=== PATIENT | female | born 1975 ===

== ENCOUNTER 2017-06-02 08:59 | Emergency (ER) | payer SELFPAY ==
[2017-06-02 09:10] VITALS: BMI 28.7
[2017-06-02 09:13] VITALS: RESP 16
[2017-06-02 10:16] LABS: RBC URINE 17 /hpf (0-3); URINE BACTERIA OCC (<OCC); URINE BILIRUBIN NEGATIVE (NEGATIVE); URINE BLOOD 2+ (NEGATIVE); URINE COLOR Yellow (YELLOW); URINE GLUCOSE (UA) NORMAL (Normal); URINE KETONE NEGATIVE (NEGATIVE); URINE LEUKOCYTE ESTERASE 3+ Leu/uL (Negative); URINE PROTEIN 2+ mg/dL (NEGATIVE); URINE UROBILINOGEN NORMAL mg/dL (0.2-1.0); WBC URINE 151 /hpf (0-5)
--- NOTE | 2017-06-02 10:23 | C.PDOC ---
Time Seen by Provider: 06/02/17 09:58 Chief Complaint (Nursing): Female Genitourinary Past Medical History Vital Signs: Last Vital Signs Temp 99.1 F 06/02/17 09:12 Pulse 86 06/02/17 09:12 Resp 16 06/02/17 09:12 BP 121/78 06/02/17 09:12 Pulse Ox 98 06/02/17 09:12 - Social History Hx Alcohol Use: No Hx Substance Use: No - Immunization History Hx Tetanus Toxoid Vaccination: No Hx Influenza Vaccination: No Hx Pneumococcal Vaccination: No ED Course And Treatment O2 Sat by Pulse Oximetry: 98 Disposition - Disposition Forms: [employer] [facility] ([place])
--- NOTE | 2017-06-02 10:24 | C.PDOC ---
History Of Present Illness 42 y/o female presents to ED with complaints of dysuria, urinary frequency and bilateral suprapubic pain for 1 day. Patient denies nausea, vomiting, fever, flank pain, vaginal discharge, vaginal bleeding, constipation or diarrhea. No other complaints at this time. Time Seen by Provider: 06/02/17 09:58 Chief Complaint (Nursing): Female Genitourinary History Per: Patient History/Exam Limitations: no limitations Onset/Duration Of Symptoms: Days Current Symptoms Are (Timing): Still Present Location Of Pain/Discomfort: Suprapubic Quality Of Discomfort: "Pain" Past Medical History Reviewed: Historical Data, Nursing Documentation, Vital Signs Vital Signs: Last Vital Signs Temp 99.1 F 06/02/17 09:12 Pulse 86 06/02/17 09:12 Resp 16 06/02/17 09:12 BP 121/78 06/02/17 09:12 Pulse Ox 98 06/02/17 10:25 - Medical History PMH: No Chronic Diseases Surgical History: No Surg Hx Family History: States: No Known Family Hx - Social History Hx Alcohol Use: No Hx Substance Use: No - Immunization History Hx Tetanus Toxoid Vaccination: No Hx Influenza Vaccination: No Hx Pneumococcal Vaccination: No Review Of Systems Except As Marked, All Systems Reviewed And Found Negative. Constitutional: Negative for: Fever, Chills Cardiovascular: Negative for: Chest Pain Respiratory: Negative for: Cough, Shortness of Breath, SOB with Excertion Gastrointestinal: Positive for: Abdominal Pain (suprapubic cramping). Negative for: Nausea, Vomiting, Diarrhea Genitourinary: Positive for: Dysuria, Frequency. Negative for: Hematuria, Vaginal Discharge, Vaginal Bleeding Skin: Negative for: Rash Physical Exam - Physical Exam Appears: Well, Non-toxic, No Acute Distress Skin: Normal Color, Warm, Dry, No Rash Head: Atraumatic, Normacephalic Eye(s): bilateral: Normal Inspection, PERRL, EOMI Oral Mucosa: Moist Neck: Normal ROM, Supple Chest: Symmetrical Cardiovascular: Rhythm Regular, No Murmur Respiratory: Normal Breath Sounds, No Accessory Muscle Use, No Rales, No Rhonchi , No Wheezing Gastrointestinal/Abdominal: Soft, No Tenderness, No Mass, No Distention, No Guarding, No Rebound Back: Normal Inspection, No CVA Tenderness Extremity: Normal ROM Neurological/Psych: Oriented x3 Gait: Steady ED Course And Treatment O2 Sat by Pulse Oximetry: 98 (RA) Pulse Ox Interpretation: Normal Medical Decision Making Medical Decision Making: Symptoms are consistent with uti. test negative. UA positive. Patient is well appearing, tolerating po, afebrile with no flank pain. Will dc with antibiotics for uti Disposition - Disposition Disposition: HOME/ ROUTINE Disposition Time: 10:39 Condition: GOOD Additional Instructions: Follow up with PMD within 2 days. Return to ED if condition worsens. Take full course of antibiotics. Pyridium or motrin as needed for pain. Prescriptions: Nitrofurantoin Macrocrystals [Macrobid] 100 mg PO BID #10 cap Phenazopyridine HCl [Pyridium] 100 mg PO TID PRN #20 tablet PRN Reason: Bladder Spasm Instructions: Phenazopyridine (By mouth), Urinary Tract Infection in Women (ED) Forms: [employer] ([place]) - Clinical Impression Clinical Impression: UTI (urinary tract infection) - PA / PUBLICATIONS WRITER / Resident Statement MD/DO has examined the patient and agrees with the treatment plan. - Scribe Statement The provider has reviewed the documentation as recorded by the Scribbetty Herron All medical record entries made by the Brandinibbetty were at my direction and personally dictated by me. I have reviewed the chart and agree that the record accurately reflects my personal performance of the history, physical exam, medical decision making, and the department course for this patient. I have also personally directed, reviewed, and agree with the discharge instructions and disposition.
[2017-06-02 10:47] VITALS: BP 108/70; PULSE 82; TEMP 98; O2SAT 99
== END 2017-06-02 10:51 | disposition home or self-care (01) ==
LOC: C.ER 08:59
DX: N39.0 Urinary tract infection, site not specified (principal)
CPT/HCPCS: 81001; 84703; 87086; 87181; 96372; 99285; J1885

== ENCOUNTER 2017-07-11 20:42 | Emergency (ER) | payer SELFPAY ==
[2017-07-11 20:42] VITALS: BMI 28.7
[2017-07-11 21:33] LABS: BASO % 0.4 % (0.0-2.0); EOS # 0.2 K/uL (0.0-0.7); EOS % 2.2 % (0.0-4.0); HEMATOCRIT 36.8 % (34.0-47.0); MEAN CORPUSCULAR HEMOGLOBIN 30.2 pg (27.0-31.0); MEAN CORPUSCULAR HGB CONC 33.9 g/dL (33.0-37.0); MEAN PLATELET VOLUME 9.2 fL (7.2-11.7); MONO # 0.4 K/uL (0.0-0.8); MONO % 4.3 % (0.0-10.0); RED CELL DISTRIBUTION WIDTH 12.7 % (11.5-14.5); WHITE BLOOD COUNT 9.3 K/uL (4.8-10.8)
[2017-07-11 21:39] LABS: CHLORIDE 99 mmol/L (98-107); POTASSIUM 3.8 mmol/L (3.6-5.2); SODIUM 134 mmol/L (132-148)
[2017-07-11 21:41] LABS: GFR AFRICAN-AMERICAN > 60
[2017-07-11 21:42] LABS: ALB/GLOB RATIO 1.2 (1.0-2.1); ALKALINE PHOSPHATASE 65 U/L (38-126); ALT/SGPT 46 U/L (9-52); AST/SGOT 50 U/L (14-36); BILIRUBIN,TOTAL 0.5 mg/dL (0.2-1.3); BLOOD UREA NITROGEN 15 mg/dL (7-17); CALCIUM 8.9 mg/dl (8.6-10.4); CARBON DIOXIDE 24 mmol/L (22-30); GLUCOSE,RANDOM 121 mg/dL (65-105); TOTAL PROTEIN 8.6 g/dL (6.3-8.3)
[2017-07-11] MEDS ORDERED: Sodium Chloride 0.9% 1,000 ML IV ONE (22:03)
[2017-07-11] MEDS ORDERED: Sodium Chloride 0.9% 1,000 ML ONE (22:18)
[2017-07-11 23:08] LABS: RBC URINE < 1 /hpf (0-3); URINE BILIRUBIN NEGATIVE (NEGATIVE); URINE BLOOD NEGATIVE (NEGATIVE); URINE COLOR Straw (YELLOW); URINE GLUCOSE (UA) NORMAL (Normal); URINE KETONE NEGATIVE (NEGATIVE); URINE PROTEIN NEGATIVE (NEGATIVE); URINE UROBILINOGEN NORMAL mg/dL (0.2-1.0); WBC URINE 1 /hpf (0-5)
[2017-07-11 23:10] LABS: URINE LEUKOCYTE ESTERASE NEGATIVE Leu/uL (Negative)
--- NOTE | 2017-07-11 23:17 | US ---
EXAM: US Abdomen Complete CLINICAL HISTORY: 42 years old, female; Pain; Abdominal pain; Epigastric; Additional info: Ruq/epigastric pain TECHNIQUE: Real-time ultrasound of the abdomen (complete) with image documentation. COMPARISON: No relevant prior studies available. FINDINGS: Liver: Increased in echogenicity and size measuring 17 cm in longitudinal dimension. No intrahepatic bile duct dilation. Gallbladder: Multiple stones are identified within the gallbladder. A positive sonographic Miguel sign was detected by the fish technologist. Common bile duct: No stones. No dilation, measuring 4 mm. Pancreas: Visualization of the pancreas is limited by overlying bowel gas. Right kidney: Unremarkable in echogenicity and size measuring 12 cm in longitudinal dimension. No hydronephrosis. Left Kidney: Unremarkable in echogenicity and size measuring 12.6 cm in longitudinal dimension. No hydronephrosis. Spleen: Unremarkable in echogenicity and size, measuring 10 cm in longitudinal dimension. Aorta: Unremarkable. Inferior vena cava: patent. IMPRESSION: Cholelithiasis. Positive sonographic Miguel sign for which clinical and serologic correlation is needed. Fatty infiltration of an enlarged liver. Limited evaluation of the pancreas, secondary to overlying bowel gas. Otherwise, unremarkable sonographic evaluation of the abdomen, as detailed above.
--- NOTE | 2017-07-11 23:58 | C.PDOC ---
History Of Present Illness 42 year old female who presents to the ER with a complaint of epigastric and RUQ pain for the pain 2-4 days, associated with mild nausea. Patient states she has a Hx of gallstones that were not removed because patient was at the time. Patient reports the pain increases when eating; denies fever or vomiting. Time Seen by Provider: 07/11/17 21:53 Chief Complaint (Nursing): Abdominal Pain History Per: Patient History/Exam Limitations: no limitations Onset/Duration Of Symptoms: Days Current Symptoms Are (Timing): Still Present Location Of Pain/Discomfort: RUQ, Epigastric Radiation Of Pain To:: None Quality Of Discomfort: Unable To Describe Associated Symptoms: Nausea. denies: Fever, Chills, Vomiting Exacerbating Factors: None Alleviating Factors: None Recent travel outside of the [place]: No Abnormal Vaginal Bleeding: No Past Medical History Reviewed: Historical Data, Nursing Documentation, Vital Signs Vital Signs: Last Vital Signs Temp 97.4 F L 07/12/17 00:35 Pulse 79 07/12/17 00:35 Resp 16 07/12/17 00:35 BP 111/63 07/12/17 00:35 Pulse Ox 99 07/12/17 00:35 - Medical History PMH: Gastritis, Gall Bladder Disease (gall stones) Surgical History: No Surg Hx Family History: States: Unknown Family Hx - Social History Hx Alcohol Use: No Hx Substance Use: No - Immunization History Hx Tetanus Toxoid Vaccination: No Hx Influenza Vaccination: No Hx Pneumococcal Vaccination: No Review Of Systems Constitutional: Negative for: Fever, Chills Gastrointestinal: Positive for: Nausea, Abdominal Pain. Negative for: Vomiting , Diarrhea Physical Exam - Physical Exam Appears: Non-toxic, Other (Mild distress) Skin: Normal Color, Warm, Dry Head: Atraumatic, Normacephalic Oral Mucosa: Moist Chest: Symmetrical Cardiovascular: Rhythm Regular Respiratory: Normal Breath Sounds, No Rales, No Rhonchi, No Wheezing Gastrointestinal/Abdominal: Soft, Tenderness (RUQ), Other (Positive Miguel's sign) Neurological/Psych: Oriented x3, Normal Speech, Normal Cognition ED Course And Treatment - Laboratory Results Result Diagrams: 07/11/17 21:25 07/11/17 21:25 O2 Sat by Pulse Oximetry: 98 (Room air) Pulse Ox Interpretation: Normal - CT Scan/US Abdominal US Other Rad Studies (CT/US): Read By Radiologist, Radiology Report Reviewed CT/US Interpretation: IMPRESSION: Cholelithiasis. Positive sonographic Miguel sign for which clinical and serologic correlation is needed. Fatty infiltration of an enlarged liver. Limited evaluation of the pancreas, secondary to overlying bowel gas. Otherwise, unremarkable sonographic evaluation of the abdomen, as detailed above. Progress Note: Blood work, urinalysis, and abdominal US ordered. Pepcid, zofran , and IV fluids administered. Case discussed with student affairs vice president who will evaluate patient in ER. Disposition - Disposition Referrals: Sudeep Watson MD [Staff Provider] - Disposition: HOME/ ROUTINE Disposition Time: 00:20 Condition: IMPROVED Additional Instructions: Thank you for letting us take care of you today. Your provider was Dr. Fiore. You were treated for gall stones. The emergency medical care you received today was directed at your acute symptoms. If you were prescribed any medication, please fill it and take as directed. It may take several days for your symptoms to resolve. Return to the Emergency Department if your symptoms worsen, do not improve, or if you have any other problems. Please contact your doctor or call one of the physicians/clinics you have been referred to that are listed on the Patient Visit Information form that is included in your discharge packet. Bring any paperwork you were given at discharge with you along with any medications you are taking to your follow up visit. Our treatment cannot replace ongoing medical care by a primary care provider (PCP) outside of the emergency department. Thank you for allowing the [facility] team to be part of your care today. Follow up with Dr. Watson in 2-3 days for re-evaluation and further management. Instructions: Gallstones (ED), Low Fat Diet (DC) Forms: [email or web address] ([place]) - Clinical Impression Clinical Impression: Abdominal pain, Gall bladder stones - Scribe Statement The provider has reviewed the documentation as recorded by the Scribbetty Khan All medical record entries made by the Scribe were at my direction and personally dictated by me. I have reviewed the chart and agree that the record accurately reflects my personal performance of the history, physical exam, medical decision making, and the department course for this patient. I have also personally directed, reviewed, and agree with the discharge instructions and disposition.
[2017-07-12 00:35] VITALS: BP 111/63; PULSE 79; RESP 16; TEMP 97.4
[2017-07-12 00:40] VITALS: O2SAT 98
== END 2017-07-12 00:35 | disposition home or self-care (01) ==
LOC: C.ER 20:42
DX: K80.20 Calculus of gallbladder without cholecystitis without obstruction (principal); R10.13 Epigastric pain
CPT/HCPCS: 76700; 80053; 81001; 83690; 84703; 85025; 96361; 96374; 96375; 99284; J2405; J7040